=== PATIENT | female | born 1960 ===

== ENCOUNTER 2022-09-18 22:47 | Emergency (ER) | payer MEDICAID, OTHER ==
[~2022-09-18] VITALS: Ht 165.1 cm; Wt 80.0 kg
[2022-09-18 23:10] VITALS: BP 173/68
[2022-09-19 03:12] LABS: BASOPHILS % 0.7 % (0.0-2.0); EOSINOPHILS % 1.5 % (0.0-5.0); HEMATOCRIT. 36.5 % (36.0-48.0); HEMOGLOBIN. 12.4 g/dL (12.0-16.0); LYMPHOCYTES % 31.7 % (20.0-50.0); MEAN CORPUSCULAR HEMOGLOBIN 29.3 pg (28.0-32.0); MEAN PLATELET VOLUME 10.2 fl (7.4-10.4); MONOCYTES % 4.1 % (2.0-8.0); PLATELET 161 x1000/uL (130-400); RED BLOOD CELL COUNT 4.25 mill/uL (4.2-5.4); RED CELL DISTRIBUTION WIDTH 14.4 % (11.6-14.6)
[2022-09-19 03:20] LABS: CHLORIDE 107 mEq/L (98-107)
== END 2022-09-19 04:56 | disposition home or self-care (01) ==
LOC: ER 22:47
DX: I10 Essential (primary) hypertension (principal); R94.31 Abnormal electrocardiogram [ECG] [EKG]
CPT/HCPCS: 36415; 80053; 83605; 83880; 84443; 84484; 85025; 93005; 99284